=== PATIENT | male | born 1950 | race African-American/Black ===

== ENCOUNTER 2017-03-31 16:12 | Emergency (ER) | payer OTHER ==
[~2017-03-31] VITALS: Ht 180.3 cm; Wt 99.8 kg
[~2017-03-31 16:12] MED LIST: AMARYL4 MG PO; ASPIR 8181 MG PO; ASPIRIN325 PO; AVAPRO300 MG PO; CARVEDILOL25 MG PO; CHLORTHALIDONE25 MG PO; COLACE100 MG PO; COZAAR 25 MG TA25 M1 PO; CRESTOR10 MG PO; CRESTOR20 MG PO; DONEPEZIL HCL10 MG PO; EFFIENT10 MG PO; FENOFIBRIC ACI135 MG PO; FLOMAX0.4 MG PO; FOLIC ACID 40400 MCG PO; FOLIC ACID PO; HYDROCHLOROTHIA25 M2 PO; IRBESARTAN150 MG PO; JALYN 0.5-0.41 EACH PO; LEVAQUIN 250 M250 MG PO; LEXAPRO 10 MG T10 M1 PO; LISINOPRIL20 MG PO; MAGOX 400400 MG PO; METFORMIN HCL500 MG PO; MIRALAX17 GM PO; NORCO 5-325 TA1 EACH PO; NORVASC5 MG PO; ONDANSETRON HCL4 M2 PO; OXYBUTYNIN 5 MG5 M2 PO; PHENERGAN 25 MG25 M1 PO; PROTONIX40 M1 PO; REQUIP 1 MG TABL1 M1 PO; SEROQUEL 25 MG25 M1 PO; TOPROL XL25 MG PO; ULTRAM 50MG TAB50 MG PO; VESICARE 5 MG TA5 MG PO; VITAMIN B-12500 MCG PO; VITAMIN B-6100 MG PO; VITAMIN D 5050000 I1 PO
[2017-03-31 17:01] LABS: ABSOLUTE NEUTROPHILS 2.8 thou/uL (1.4-8.2); BASOPHILS 0.2 % (0.0-2.0); EOSINOPHILS 3.3 % (0.0-3.0); HEMATOCRIT 35.6 % (42.0-52.0); HEMOGLOBIN 11.5 gm/dL (14.0-18.0); LYMPHOCYTES 21.3 % (24.0-44.0); MCH 24.4 pg (26.0-34.0); MCHC 32.4 g/dL (28.0-37.0); MCV 75.5 fL (80.0-100.0); MONOCYTES 11.5 % (1.0-8.0); PLATELET COUNT 247 thou/uL (150-400); POLYS 63.7 % (36.0-66.0); RBC 4.71 mil/uL (4.50-6.00); RDW 16.9 % (10.5-14.5); WBC 4.5 thou/uL (4.0-11.0)
[2017-03-31 17:04] LABS: MANUAL DIFF NO
[2017-03-31 17:08] LABS: CALCIUM 8.9 mg/dL (8.5-10.1); CREATININE 1.2 mg/dL (0.7-1.3); POTASSIUM 3.7 mmol/L (3.5-5.1)
[2017-03-31] MEDS ORDERED: CYCLOBENZAPRINE5 MG PO (17:14)
[2017-03-31] MEDS ORDERED: PREDNISONE 20 M20 MG PO (17:14)
[2017-04-02] MEDS ORDERED: NORCO 5-325 TA1 EACH PO (07:54)
== END 2017-03-31 18:03 | disposition home or self-care (01) ==
LOC: ER 16:12
PROVIDERS: Nurse Practitioner
DX: M54.31 Sciatica, right side (principal); I10 Essential (primary) hypertension; E11.9 Type 2 diabetes mellitus without complications

== ENCOUNTER 2017-09-07 17:36 | Emergency (ER) | payer OTHER ==
[~2017-09-07] VITALS: Ht 180.3 cm; Wt 99.8 kg
[~2017-09-07 17:36] MED LIST changes: +CYCLOBENZAPRINE5 MG PO; +PREDNISONE 20 M20 MG PO
[2017-09-07] MEDS ORDERED: NORCO 5-325 TA1 EACH PO (19:40)
[2017-09-07] MEDS ORDERED: AUGMENTIN 875-1 EACH PO (19:40)
== END 2017-09-07 20:28 | disposition home or self-care (01) ==
LOC: ER 17:36
DX: S02.81XA Fracture of other specified skull and facial bones, right side, initial encounter for closed fracture (principal); S02.40CA Maxillary fracture, right side, initial encounter for closed fracture; I10 Essential (primary) hypertension; E11.9 Type 2 diabetes mellitus without complications; Z95.1 Presence of aortocoronary bypass graft; Z95.9 Presence of cardiac and vascular implant and graft, unspecified; W19.XXXA Unspecified fall, initial encounter; Y93.89 Activity, other specified; Y92.89 Other specified places as the place of occurrence of the external cause; Y99.8 Other external cause status

== ENCOUNTER → 2017-09-14 | Outpatient (CLI) | payer OTHER ==
[~2017-09-14] MED LIST changes: +AUGMENTIN 875-1 EACH PO
--- NOTE | ~2017-09-14 | EKG ---
[address] [place] [address] ELECTROCARDIOGRAM REPORT Name: HARMEET VIVEROS Room #: REG [facility]#: [id number] Admission: 09/14/17 Attend Phys: Kaushik Montgomery MD Discharge: Date of : 46 Report #: [id number] THIS REPORT FOR: //name// [facility] Test Date: 2017-09-14 Test Time: 10:51:31 Pat Name: HARMEET VIVEROS Department: Room: Gender: Make Ready Worker: Fransisca BYERS : 1950 Requested By: Kaushik Montgomery Order Number: [id number] MD: Kiel Mattson Measurements Intervals [place] Rate: 68 P: -25 [place]: 217 QRS: -54 QRSD: 150 T: 176 QT: 412 QTc: 439 Interpretive Statements Sinus rhythm Borderline prolonged [place] interval RBBB and LAFB Abnormal T, consider ischemia, lateral leads Compared to ECG 10/25/2015 18:17:33 Lateral T wave abnormality is more pronounced Electronically Signed On 09-14-2017 17:08:43 CDT by Kiel Mattson [email or web address] <ELECTRONICALLY SIGNED> By: Kiel Mattson MD, [facility] 09/14/17 1708 1051 1051 Kiel Mattson MD, [facility] /EPI
== END ==
LOC: CV 10:25
DX: Z01.818 Encounter for other preprocedural examination (principal)

== ENCOUNTER 2018-05-09 17:09 | Emergency (ER) | payer OTHER ==
[~2018-05-09] VITALS: Ht 180.3 cm; Wt 88.5 kg
[2018-05-09 17:10] VITALS: BP 130/69
[2018-05-09 18:15] LABS: URINE BILIRUBIN NEGATIVE (Negative); URINE BLOOD TRACE (Negative); URINE CLARITY CLEAR; URINE COLOR YELLOW; URINE GLUCOSE-RANDOM* NEGATIVE (Negative); URINE KETONES NEGATIVE (Negative); URINE LEUKOCYTES-REFLEX NEGATIVE (Negative); URINE NITRITE-REFLEX NEGATIVE (Negative); URINE PROTEIN (DIPSTICK) NEGATIVE (Negative); URINE UROBILINOGEN 0.2 E.U./dl (0.2-1.0)
[2018-05-09 18:27] LABS: ABSOLUTE NEUTROPHILS 3.3 thou/uL (1.4-8.2); BASOPHILS 1.3 % (0.0-2.0); HEMATOCRIT 37.7 % (42.0-52.0); HEMOGLOBIN 12.5 gm/dL (14.0-18.0); LYMPHOCYTES 25.9 % (24.0-44.0); MCH 28.5 pg (26.0-34.0); MCHC 33.1 g/dL (28.0-37.0); MCV 86.1 fL (80.0-100.0); MONOCYTES 9.7 % (1.0-8.0); PLATELET COUNT 199 thou/uL (150-400); POLYS 59.1 % (36.0-66.0); RBC 4.38 mil/uL (4.50-6.00); RDW 13.6 % (10.5-14.5); WBC 5.6 thou/uL (4.0-11.0)
[2018-05-09 18:51] LABS: ANION GAP 10 mmol/L (7-16); BUN 12 mg/dL (7-18); CALCIUM 8.5 mg/dL (8.5-10.1); CHLORIDE 104 mmol/L (98-107); CO2 26 mmol/L (21-32); CREATININE 1.1 mg/dL (0.7-1.3); GLUCOSE 78 mg/dL (74-106); POTASSIUM 3.5 mmol/L (3.5-5.1); SODIUM 140 mmol/L (136-145)
[2018-05-09 18:54] LABS: TROPONIN-I <0.06 ng/mL (<0.06)
--- NOTE | 2018-05-10 08:27 | EKG ---
[address] [address] ELECTROCARDIOGRAM REPORT Name: HARMEET VIVEROS EDYUMIKO Room #: [facility]#: [id number] Admission: 05/09/18 Attend Phys: Discharge: 05/09/18 Date of : 46 Report #: [id number] THIS REPORT FOR: //name// [facility] ED Test Date: 2018-05-09 Test Time: 17:54:55 Pat Name: HARMEET VIVEROS Department: Room: Gender: M Physician Chief Of Pathology: YOLANDA : 1950 Requested By: Jin Solorzano Order Number: [id number] MD: Kiel Mattson Measurements Intervals [place] Rate: 74 P: 3 ID: 215 QRS: -55 QRSD: 148 T: 133 QT: 412 QTc: 457 Interpretive Statements Sinus rhythm Borderline prolonged [place] interval RBBB and LAFB Left ventricular hypertrophy Abnormal T, consider ischemia, lateral leads Compared to ECG 09/14/2017 10:51:31 Lateral T wave abnormality is less pronounced Electronically Signed On 05-10-2018 8:27:20 DENTAL PROSTHETIST by Kiel Mattson [email or web address] <ELECTRONICALLY SIGNED> By: Kiel Mattson MD, [facility] 05/10/18 0827 1754 1754 Kiel Mattson MD, [facility] /EPI
== END 2018-05-09 23:28 | disposition home or self-care (01) ==
LOC: ER 17:09
PROVIDERS: Emergency Medicine
DX: R53.1 Weakness (principal); I10 Essential (primary) hypertension; E11.9 Type 2 diabetes mellitus without complications; Z95.5 Presence of coronary angioplasty implant and graft

== ENCOUNTER 2018-06-23 11:49 | Emergency (ER) | payer OTHER ==
[~2018-06-23] VITALS: Ht 180.3 cm; Wt 95.3 kg
[2018-06-23] MEDS ORDERED: FLOMAX0.4 MG PO ×2 (12:52→15:15)
[2018-06-23] MEDS ORDERED: DONEPEZIL HCL 55 M1 PO (12:53)
[2018-06-23] MEDS ORDERED: COREG25 MG PO ×2 (12:53→15:15)
[2018-06-23] MEDS ORDERED: OMEPRAZOLE 20 M20 M1 PO (12:54)
[2018-06-23] MEDS ORDERED: TYLENOL EXTRA500 MG PO (12:56)
[2018-06-23 13:56] LABS: HEMATOCRIT 38.3 % (42.0-52.0); HEMOGLOBIN 12.6 gm/dL (14.0-18.0); MCH 28.5 pg (26.0-34.0); MCHC 32.9 g/dL (28.0-37.0); MCV 86.7 fL (80.0-100.0); PLATELET COUNT 196 thou/uL (150-400); RBC 4.42 mil/uL (4.50-6.00); RDW 14.8 % (10.5-14.5); WBC 4.6 thou/uL (4.0-11.0)
[2018-06-23 14:06] LABS: CALCIUM 8.5 mg/dL (8.5-10.1); CREATININE 1.3 mg/dL (0.7-1.3); POTASSIUM 3.6 mmol/L (3.5-5.1)
[2018-06-23 14:57] VITALS: BP 152/86
[2018-06-23 15:14] LABS: ANISOCYTOSIS 1+
[2018-06-23] MEDS ORDERED: ARICEPT 5 MG TAB5 MG PO (15:15)
[2018-06-23] MEDS ORDERED: NORVASC10 MG PO (15:15)
[2018-06-23] MEDS ORDERED: CRESTOR20 MG PO (15:15)
[2018-06-23] MEDS ORDERED: PRILOSEC 20 MG20 MG PO (15:15)
[2018-06-23] MEDS ORDERED: AMARYL4 MG PO (15:15)
[2018-06-23] MEDS ORDERED: METFORMIN HCL500 MG PO (15:15)
[2018-06-23] MEDS ORDERED: COZAAR 25 MG TA25 M2 PO (15:15)
== END 2018-06-23 15:39 | disposition home or self-care (01) ==
LOC: ER 11:49
PROVIDERS: Physician Assistant
DX: R60.0 Localized edema (principal); Z76.0 Encounter for issue of repeat prescription; I10 Essential (primary) hypertension; E11.9 Type 2 diabetes mellitus without complications; Z95.5 Presence of coronary angioplasty implant and graft

== ENCOUNTER 2019-01-15 13:11 | Emergency (ER) | payer OTHER ==
[~2019-01-15] VITALS: Ht 180.3 cm; Wt 99.8 kg
[~2019-01-15 13:11] MED LIST changes: +ARICEPT 5 MG TAB5 MG PO; +COREG25 MG PO; +COZAAR 25 MG TA25 M2 PO; +DONEPEZIL HCL 55 M1 PO; +NORVASC10 MG PO; +OMEPRAZOLE 20 M20 M1 PO; +PRILOSEC 20 MG20 MG PO; +TYLENOL EXTRA500 MG PO
[2019-01-15 13:46] LABS: URINE BILIRUBIN NEGATIVE (Negative); URINE BLOOD 2+ (Negative); URINE CLARITY CLEAR; URINE COLOR YELLOW; URINE GLUCOSE-RANDOM* TRACE (Negative); URINE KETONES NEGATIVE (Negative); URINE LEUKOCYTES-REFLEX NEGATIVE (Negative); URINE NITRITE-REFLEX NEGATIVE (Negative); URINE PROTEIN (DIPSTICK) 1+ (Negative); URINE UROBILINOGEN 0.2 E.U./dl (0.2-1.0)
[2019-01-15 13:55] LABS: BACTERIA-REFLEX 1-9 Few /HPF (None Seen); CASTS None Seen /LPF (None Seen); CRYSTALS None Seen /LPF (None Seen); SQUAMOUS None Seen /LPF (0-3); URINE WBC-REFLEX None Seen /HPF (0-5)
[2019-01-15 15:41] VITALS: BP 200/62
== END 2019-01-15 15:44 | disposition home or self-care (01) ==
LOC: ER 13:11
PROVIDERS: Emergency Medicine
DX: N39.0 Urinary tract infection, site not specified (principal); I10 Essential (primary) hypertension; E11.9 Type 2 diabetes mellitus without complications; Z95.5 Presence of coronary angioplasty implant and graft

== ENCOUNTER 2019-01-16 09:36 | Emergency (ER) | payer OTHER ==
[~2019-01-16] VITALS: Ht 180.3 cm; Wt 99.8 kg
[2019-01-16 11:21] VITALS: BP 151/102
== END 2019-01-16 11:13 | disposition home or self-care (01) ==
LOC: ER 09:36
DX: R33.9 Retention of urine, unspecified (principal); R31.9 Hematuria, unspecified; I10 Essential (primary) hypertension; E11.9 Type 2 diabetes mellitus without complications; Z95.5 Presence of coronary angioplasty implant and graft

== ENCOUNTER 2019-01-23 18:39 | Emergency (ER) | payer OTHER ==
[~2019-01-23] VITALS: Ht 180.3 cm; Wt 99.8 kg
[2019-01-23 18:53] VITALS: BP 151/77
[2019-01-23 19:11] LABS: URINE BILIRUBIN NEGATIVE (Negative); URINE BLOOD 3+ (Negative); URINE CLARITY CLOUDY; URINE COLOR OTHER; URINE GLUCOSE-RANDOM* NEGATIVE (Negative); URINE KETONES NEGATIVE (Negative); URINE NITRITE-REFLEX NEGATIVE (Negative); URINE PROTEIN (DIPSTICK) 2+ (Negative); URINE UROBILINOGEN 0.2 E.U./dl (0.2-1.0)
[2019-01-23 19:12] LABS: URINE LEUKOCYTES-REFLEX 2+ (Negative)
[2019-01-23 19:30] LABS: URINE RBC 3-10 Few /HPF (0-2)
[2019-01-23 19:31] LABS: CASTS None Seen /LPF (None Seen); CRYSTALS None Seen /LPF (None Seen); SQUAMOUS 0-3 Few /LPF (0-3); TRANSITIONAL EPITHEL CELL 0-3 Few /LPF (None Seen); URINE WBC-REFLEX 6-15 Few /HPF (0-5)
[2019-01-23] MEDS ORDERED: KEFLEX500 M1 PO (19:33)
== END 2019-01-23 20:38 | disposition home or self-care (01) ==
LOC: ER 18:39
PROVIDERS: Emergency Medicine
DX: T83.518A Infection and inflammatory reaction due to other urinary catheter, initial encounter (principal); I10 Essential (primary) hypertension; E11.9 Type 2 diabetes mellitus without complications; Z95.2 Presence of prosthetic heart valve; Y92.89 Other specified places as the place of occurrence of the external cause; Y81.2 Prosthetic and other implants, materials and accessory general- and plastic-surgery devices associated with adverse incidents

== ENCOUNTER → 2019-07-18 | Outpatient (CLI) | payer OTHER ==
[~2019-07-18] MED LIST changes: +KEFLEX500 M1 PO
== END ==
LOC: MRI 08:39
DX: M47.812 Spondylosis without myelopathy or radiculopathy, cervical region (principal); G81.90 Hemiplegia, unspecified affecting unspecified side; R90.82 White matter disease, unspecified; G93.0 Cerebral cysts; M48.02 Spinal stenosis, cervical region; R29.2 Abnormal reflex; Z86.73 Personal history of transient ischemic attack (TIA), and cerebral infarction without residual deficits

== ENCOUNTER → 2019-07-25 | Outpatient (CLI) | payer OTHER | LOC: MRI 09:48 | DX: I66.01 Occlusion and stenosis of right middle cerebral artery (principal); I63.89 Other cerebral infarction ==

== ENCOUNTER → 2019-09-06 | Outpatient (CLI) | payer OTHER | LOC: SJCVC 10:15 | PROVIDERS: ATTEND Internal Medicine | DX: I44.0 Atrioventricular block, first degree (principal); I45.2 Bifascicular block; R94.31 Abnormal electrocardiogram [ECG] [EKG]; I25.10 Atherosclerotic heart disease of native coronary artery without angina pectoris; I10 Essential (primary) hypertension; E11.9 Type 2 diabetes mellitus without complications; E78.5 Hyperlipidemia, unspecified; G91.4 Hydrocephalus in diseases classified elsewhere; Z82.49 Family history of ischemic heart disease and other diseases of the circulatory system ==

== ENCOUNTER 2019-09-13 14:16 | Emergency (ER) | payer OTHER ==
[~2019-09-13] VITALS: Ht 177.8 cm; Wt 104.3 kg
--- NOTE | ~2019-09-13 | EMS ---
[address] [address] EMS Patient Care Report Name: HARMEET VIVEROS Room #: REG [facility]#: [id number] Admission: 09/13/19 Attend Phys: Discharge: Date of : 46 Report #: [id number] THIS REPORT FOR: //name// Report Transmitted: 09/13/2019 22:33 EMS Care Summary [place], [place]/[facility] Incident [id number] @ 09/13/2019 13:37 Incident Location [address] [place] [address] Patient HARMEET VIVEROS, Male, 69 Years 1950 Patient Address [address] [place] [id number] Patient History Hypertension (HTN),Stroke/CVA,Hyperlipidemia,Gastro-Esophageal Reflux Disease (GERD),Depression,Peripheral Vascular Disease,Type 2 Diabetes,Coronary Artery Disease (CAD), Patient Allergies No known allergies, Patient Medications Losartan, Omeprazole, Rosuvastatin, Metformin, Carvedilol, Glimepiride, Tamsulosin, Donepezil, Chief Complaint I have heaviness in my chest Disposition Transported No Lights/[place] Dispatch Reason Sick Person Transported To [facility] Narrative Called to the scene for a sick. Upon arrival, pt was sitting on his bed very irritated at the staff because they wouldn't respond when he called them. [address] [address] EMS Patient Care Report Name: HARMEET VIVEROS Room #: REG M.R.#: [id number] Admission: 09/13/19 Attend Phys: Discharge: Date of : 46 Report #: [id number] Staff stated the power had been out for appox 2 hour and they didn't know. Pt said he needed his BP check and now c/o chest heaviness. He is very irritated at the staff and 911 cause when he call them they asked too many questions. He said he wanted to go to [facility] to get check out because "he could be having a heart attack". He was moved to the EMS cot and loaded into the ambulance w/o incident. Vitals obtained. [address] elevation. 18g IV. D-stick. Vitals repeated. En route: pt calmed down. RR to [facility]. Arrived: pt taken to ER HW and moved to their bed, pt care & report to ER staff. Initial Vitals @13:55P: 78,R: 14,BP: 193/94,Pain: 2/10,GCS: 15,CO: 0,SpO2: 97,Revised Trauma: 12, @14:01P: 76,R: 14,BP: 188/103,Pain: 0/10,GCS: 15,Glucose: 121,SpO2: 98,Revised Trauma: 12, @13:59P: 77,Pain: 2/10,GCS: 15,CO: 1,SpO2: 98,MO Suspected: false Assessments @13:47MENTAL:Person Oriented,Time Oriented,Event Oriented,Place Oriented,SKIN:HEENT:LUNG SOUNDS:ABDOMEN:PELVIS//GI:EXTREMITIES:Left Arm: No Abnormalities,Right Arm: No Abnormalities,Left Leg: No Abnormalities,Right Leg: No Abnormalities,PULSE:NEURO: Impression Chest Pain / Discomfort Procedures @13:5912-Lead ECGResponse: UnchangedSucceeded@13:56Saline Lock 8cc (18 ga) Site: Forearm-LeftResponse: UnchangedSucceeded@13:47ALS AssessmentResponse: UnchangedSucceeded@13:53StretcherResponse: Unchanged@13:573-Lead ECGResponse: UnchangedSucceeded Timeline 13:31,Call Received 13:31,Dispatch Notified 13:37,Dispatched 13:39,En Route 13:46,On Scene 13:47,At Patient 13:47,ALS Assessment,Response: UnchangedSucceeded, 13:53,Stretcher,Response: Unchanged 13:55,BP: 193/94 M,PULSE: 78,RR: 14 R,SPO2: 97 Ox,ETCO2: ,BG: ,PAIN: 2,GCS: 15, 13:56,Saline Lock 8cc 18 ga Site: Forearm-Left,Response: UnchangedSucceeded, 13:57,3-Lead ECG,Response: UnchangedSucceeded, 13:59,12-Lead ECG,Response: UnchangedSucceeded, 13:59,BP: / M,PULSE: 77,RR: R,SPO2: 98 Ox,ETCO2: ,BG: ,PAIN: 2,GCS: 15, 14:01,BP: 188/103 M,PULSE: 76,RR: 14 R,SPO2: 98 Ox,ETCO2: ,B,PAIN: [facility] [address] [place] [address] EMS Patient Care Report Name: HARMEET VIVEROS Room #: [facility] Horner#: [id number] Admission: 09/13/19 Attend Phys: Discharge: Date of : 46 Report #: [id number] 0,GCS: 15, 14:02,Depart Scene 14:09,At Destination 14:24,Call Closed Disclaimer [email or web address] Copyright 2020 [employer] This EMS Care Summary contains data elements from the applicable legal record (which may be displayed differently). It is designed to provide pertinent information for the following purposes: continuity of care, clinical quality, and state data reporting. The complete legal record is available to ED staff and administrators of the receiving hospital in [facility]'s Patient Tracker. All data is provided "as is."
[2019-09-13 14:48] LABS: ABSOLUTE NEUTROPHILS 2.4 thou/uL (1.4-8.2); BASOPHILS 0.3 % (0.0-2.0); EOSINOPHILS 4.2 % (0.0-3.0); HEMATOCRIT 36.5 % (42.0-52.0); HEMOGLOBIN 12.1 gm/dL (14.0-18.0); LYMPHOCYTES 24.9 % (24.0-44.0); MCH 29.2 pg (26.0-34.0); MCHC 33.1 g/dL (28.0-37.0); MCV 88.3 fL (80.0-100.0); MONOCYTES 10.2 % (1.0-8.0); PLATELET COUNT 195 thou/uL (150-400); POLYS 60.4 % (36.0-66.0); RBC 4.13 mil/uL (4.50-6.00); RDW 14.8 % (10.5-14.5)
[2019-09-13 14:55] LABS: ANION GAP 9 mmol/L (7-16); BUN 17 mg/dL (7-18); CALCIUM 8.1 mg/dL (8.5-10.1); CHLORIDE 105 mmol/L (98-107); CO2 24 mmol/L (21-32); CREATININE 1.5 mg/dL (0.7-1.3); GLUCOSE 142 mg/dL (74-106); SODIUM 138 mmol/L (136-145)
[2019-09-13] MEDS ORDERED: OMEPRAZOLE 20 M20 M1 PO (14:55)
[2019-09-13] MEDS ORDERED: EFFIENT10 MG PO (14:55)
[2019-09-13] MEDS ORDERED: FLOMAX0.4 MG PO (14:56)
[2019-09-13 15:06] LABS: ALBUMIN 3.4 g/dL (3.4-5.0); SGOT 29 U/L (15-37); SGPT 21 U/L (30-65); TOTAL BILIRUBIN 0.6 mg/dL (0.2-1.0); TOTAL PROTEIN 7.2 g/dL (6.4-8.2); TROPONIN-I <0.06 ng/mL (<0.06)
--- NOTE | 2019-09-13 16:12 | EKG ---
[facility] [place] [address] ELECTROCARDIOGRAM REPORT Name: HARMEET VIVEROS EDFLORENCE Room #: REG [facility].R.#: [id number] Admission: 09/13/19 Attend Phys: Discharge: Date of : 46 Report #: [id number] THIS REPORT FOR: cc: Elaine Vincent DNP, Mary E. DNP Couchonnal, Luis F. MD ~ THIS REPORT FOR: //name// [facility] ED Test Date: 2019-09-13 Test Time: 14:44:47 Pat Name: HARMEET VIVEROS Department: Room: Gender: Table Filler: eric quiroga : 1950 Requested By: Collin James Order Number: [id number] MD: Bert Gibson Measurements Intervals [place] Rate: 69 P: -13 ME: 298 QRS: -60 QRSD: 154 T: 158 QT: 378 QTc: 405 Interpretive Statements Sinus rhythm Prolonged [place] interval Probable left atrial enlargement Right bundle branch block Compared to ECG 05/09/2018 17:54:55 Electronically Signed On 09-13-2019 16:09:52 CDT by Bert Gibson [email or web address] <ELECTRONICALLY SIGNED> By: Bert Gibson MD 09/13/19 1609 1444 1444 Bert Gibson MD /EPI
[2019-09-13 18:00] VITALS: BP 154/71
== END 2019-09-13 19:42 | disposition home or self-care (01) ==
LOC: ER 14:16
PROVIDERS: Emergency Medicine
DX: R07.89 Other chest pain (principal); G30.8 Other Alzheimer's disease; F02.80 Dementia in other diseases classified elsewhere, unspecified severity, without behavioral disturbance, psychotic disturbance, mood disturbance, and anxiety; I10 Essential (primary) hypertension; E11.9 Type 2 diabetes mellitus without complications; Z79.82 Long term (current) use of aspirin; Z79.899 Other long term (current) drug therapy; Z95.5 Presence of coronary angioplasty implant and graft; Z98.84 Bariatric surgery status

== ENCOUNTER → 2019-09-25 | Outpatient (CLI) | payer OTHER | LOC: SJCVC 14:43 | PROVIDERS: ATTEND Internal Medicine | DX: R94.31 Abnormal electrocardiogram [ECG] [EKG] (principal); I49.1 Atrial premature depolarization; I45.2 Bifascicular block; I25.708 Atherosclerosis of coronary artery bypass graft(s), unspecified, with other forms of angina pectoris; I10 Essential (primary) hypertension; E11.9 Type 2 diabetes mellitus without complications; Z79.899 Other long term (current) drug therapy ==

== ENCOUNTER → 2019-10-05 | Outpatient (CLI) | payer OTHER | LOC: RAD 12:36 | PROVIDERS: ATTEND Nurse Practitioner | DX: I70.202 Unspecified atherosclerosis of native arteries of extremities, left leg (principal); M79.605 Pain in left leg ==

== ENCOUNTER → 2019-12-07 | Outpatient (CLI) | payer OTHER | LOC: SJCVCIMAG 08:43 | PROVIDERS: ATTEND Internal Medicine | DX: I35.8 Other nonrheumatic aortic valve disorders (principal); I45.2 Bifascicular block; I11.9 Hypertensive heart disease without heart failure; I25.708 Atherosclerosis of coronary artery bypass graft(s), unspecified, with other forms of angina pectoris; R60.0 Localized edema; Z95.1 Presence of aortocoronary bypass graft; Z79.899 Other long term (current) drug therapy ==